=== PATIENT | male | born 1980 | race Caucasian/White ===

== ENCOUNTER 2024-11-28 18:38 | Emergency (ER) | payer MEDICAID, SELFPAY ==
--- NOTE | ~2024-11-28 | CT_ITS ---
CLINICAL HISTORY: jonsa CT head without contrast Comparison: None provided Findings: No intra-axial mass, midline shift, hydrocephalus, or acute hemorrhage. No significant atrophy-like change or white matter disease. There is no sinus or mastoid fluid. The orbits are unremarkable. There is no acute fracture. IMPRESSION: 1. No acute intracranial findings. This document has been electronically signed by: Mehul Hobbs MD on 11/28/2024 21:40:40
[2024-11-28 18:45] VITALS: BP 117/80; PULSE 59; RESP 16; TEMP 36.4; O2SAT 99; BMI 22.2
--- NOTE | 2024-11-28 18:47 | ED_ITS ---
HPI - Headache General Chief Complaint: Headache Stated Complaint: headache would like BP and Sugar checked Time Seen by Provider: 11/28/24 19:20 Related Data Allergies Allergy/AdvReac Type Severity Reaction Status Date / Time No Known Allergies Allergy Verified 11/28/24 18:49 [facility] Social History Social History Advance Directives: No Advance Directives Information Provided: Yes Do you have a plan to hurt others: No Plan Physical Exam 2 Vital Signs: Vital Signs: Last Vital Signs Temp 97.7 F 11/28/24 22:34 Pulse 63 11/28/24 22:34 Resp 16 11/28/24 22:34 BP 115/67 11/28/24 22:34 Pulse Ox 99 11/28/24 22:34 O2 Del Method Room Air 11/28/24 22:34 BMI result Body Mass Index 22.2 Course Course Course Narrative: This is an RME: Additional HPI, ROS, PE not included below will be deferred to primary provider. RME assessment and note performed by: Anna Pena PA-C This is a [id number]-male, with a hx of anxiety, depression, who presents to the ER with a complaint of headache, nausea, diarrhea, hot and cold sweats since yesterday. Neuros intact Plan: Labs, viral swabs, further ER eval needed Reevaluation(s) Reevaluation #1: >>duplicate note. See note by primary provider, Dr. Vaca Medications Administered Discontinued Medications Generic Name Dose Route Start Last Admin Trade Name Freq PRN Reason Stop Dose Admin Diphenhydramine HCl 25 mg 11/28/24 19:43 11/28/24 20:04 Diphenhydramine Hcl 50 Mg/Ml Vial IVPUSH 11/28/24 19:44 25 mg ONCE ONE Administration Sodium Chloride 1,000 mls @ 999 mls/hr 11/28/24 19:45 11/28/24 21:05 Ns IV 11/28/24 20:45 Infused .Q1H1M ANGELA Infusion Ketorolac Tromethamine 15 mg 11/28/24 19:43 11/28/24 20:04 Ketorolac Tromethamine 15 Mg/Ml Vial IVPUSH 11/28/24 19:44 15 mg ONCE ONE Administration Metoclopramide HCl 10 mg 11/28/24 19:43 11/28/24 20:04 Metoclopramide Hcl 10 Mg/2 Ml Vial IVPUSH 11/28/24 19:44 10 mg ONCE ONE Administration Medical Decision Making Lab Data 11/28/24 18:59 11/28/24 18:59 Labs: Lab Results 11/28/24 Range/Units 18:59 WBC 4.7 L (4.8-10.8) X10*3/uL RBC 5.07 (4.60-5.80) X10*6/uL Hgb 14.4 (14.0-18.0) g/dl Hct 42.9 (42.0-52.0) % MCV 84.6 (80.0-98.0) fL MCH 28.4 (27.0-33.0) pg MCHC 33.6 (31.0-36.0) g/dl RDW 13.6 (11.0-16.0) % Plt Count 202 (160-400) X10*3/uL MPV 9.0 L (9.4-12.4) fL Immature Gran % (Auto) 0.2 (0.0-0.4) % Neut % (Auto) 41.8 L (45-73) % Lymph % (Auto) 46.8 H (20-40) % [place] % (Auto) 7.1 (2-11) % Eos % (Auto) 3.0 (0-4) % Baso % (Auto) 1.1 (0-2) % Lymph # (Auto) 2.2 (1.2-4.9) X10*3/uL [place] # (Auto) 0.3 (0.1-1.2) X10*3/uL Eos # (Auto) 0.1 (0.0-0.4) X10*3/uL Baso # (Auto) 0.1 (0.0-0.2) X10*3/uL Abs Immat Gran (auto) 0.01 (0.00-0.03) X10*3/uL Absolute Neuts (auto) 2.0 (2.0-8.3) x10*3/uL Absolute Nucleated RBC 0.000 (0.0-0.012) X10*3/uL Nucleated RBC % (auto) 0.0 (0.0-0.2) /100WBC Sodium 142 (135-145) mmol/L Potassium 3.7 (3.3-5.1) mmol/L Chloride 111 H (96-108) mmol/L Carbon Dioxide 23 (22-29) mmol/L Anion Gap 12 (12-20) BUN 17 H (9-16) mg/dL Creatinine 0.99 (0.5-1.4) mg/dL Estim Creat Clear Calc 94.6 Estimated GFR > 60 Random Glucose 100 (60-115) mg/dL Calcium 8.9 (8.4-10.2) mg/dL Total Bilirubin 0.8 (0.0-1.0) mg/dL Direct Bilirubin 0.2 (0.0-0.5) mg/dL AST 30 (5-37) U/L ALT 34 (0-40) U/L Alkaline Phosphatase 86 (39-117) U/L Total Protein 7.5 (6.5-8.0) g/dL Albumin 4.4 (3.5-5.0) g/dL Influenza Type A (PCR) NEGATIVE (Negative) Influenza Type B (PCR) NEGATIVE (Negative) RSV RNA Qual (PCR) NEGATIVE (Negative) SARS-CoV-2 RNA (RT-PCR) NEGATIVE (Negative) Discharge Plan Discharge Clinical Impression: Headache Patient Disposition: Home, Self-Care Instructions: Acute Headache (DC) Referrals: Physician,Unknown J [Primary Care Provider, Medical] - 3 days Interventions: ED Discharge Assessment Last Done: 11/28/24 22:34 Discharge Date/Time: 11/28/24 22:34 Print Language: Panamanian
[2024-11-28 19:03] LABS: MANUAL DIFF FLAG NO
[2024-11-28 19:04] LABS: Basophils Absolute Auto 0.1 X10*3/uL (0.0-0.2); Basophils Percent Auto 1.1 % (0-2); Eosinophils Absolute Auto 0.1 X10*3/uL (0.0-0.4); Hematocrit 42.9 % (42.0-52.0); Hemoglobin 14.4 g/dl (14.0-18.0); Imm Gran Abs Auto 0.01 X10*3/uL (0.00-0.03); Imm Gran Pct Auto 0.2 % (0.0-0.4); Lymphocytes Absolute Auto 2.2 X10*3/uL (1.2-4.9); Lymphocytes Percent Auto 46.8 % (20-40); Mean Corpuscular HGB Conc 33.6 g/dl (31.0-36.0); Mean Corpuscular Hemoglobin 28.4 pg (27.0-33.0); Mean Corpuscular Volume 84.6 fL (80.0-98.0); Monocytes Absolute Auto 0.3 X10*3/uL (0.1-1.2); Monocytes Percent Auto 7.1 % (2-11); Neutrophils Percent Auto 41.8 % (45-73); Platelet Count 202 X10*3/uL (160-400); Red Blood Count 5.07 X10*6/uL (4.60-5.80); Red Cell Distribution Width 13.6 % (11.0-16.0); White Blood Count 4.7 X10*3/uL (4.8-10.8)
[2024-11-28 19:18] LABS: Alanine Aminotransferase 34 U/L (0-40); Albumin Level 4.4 g/dL (3.5-5.0); Alkaline Phosphatase 86 U/L (39-117); Anion Gap 12 (12-20); Aspartate Amino Transferase 30 U/L (5-37); Bilirubin Direct 0.2 mg/dL (0.0-0.5); Bilirubin Total 0.8 mg/dL (0.0-1.0); Blood Urea Nitrogen 17 mg/dL (9-16); Calcium 8.9 mg/dL (8.4-10.2); Carbon Dioxide 23 mmol/L (22-29); Chloride 111 mmol/L (96-108); Creatinine Clr Calc Pharmacy 94.6; Estimated Glomerular Filt Rate > 60; Glucose Random 100 mg/dL (60-115); Potassium 3.7 mmol/L (3.3-5.1); Sodium 142 mmol/L (135-145); Total Protein 7.5 g/dL (6.5-8.0)
[2024-11-28 19:41] LABS: Influenza A PCR NEGATIVE (Negative); Influenza B PCR NEGATIVE (Negative); Resp Syncy Virus RNA Qual PCR NEGATIVE (Negative); SARS COV2 PCR INHOUSE NEGATIVE (Negative)
--- NOTE | 2024-11-28 19:49 | ED.HA ---
HPI - Headache General Chief Complaint: Headache Stated Complaint: headache would like BP and Sugar checked Time Seen by Provider: 11/28/24 19:20 History of Present Illness HPI Narrative: Patient is a 44-year-old male presents today with having headache nausea from home. No fever no chills. No diaphoresis. No chest pain no coughing no upper respiratory symptoms. No neck pain no fever. The pain has been ongoing for about a week. Has a history of similar headaches in the past. No focal weakness. Not on blood thinners. History of anxiety. Related Data Allergies Allergy/AdvReac Type Severity Reaction Status Date / Time No Known Allergies Allergy Verified 11/28/24 18:49 Review of Systems Review of Systems: Positive headache Yes all other systems are reviewed and are negative PMFSH Past Medical History Attestation statement: The following information was validated with the patient. Social History Social History Advance Directives: No Advance Directives Information Provided: Yes Do you have a plan to hurt others: No Plan Physical Exam Vital Signs: Vital Signs: Last Vital Signs Temp 97.6 F 11/28/24 18:45 Pulse 59 11/28/24 18:45 Resp 16 11/28/24 18:45 BP 117/80 11/28/24 18:45 Pulse Ox 99 11/28/24 18:45 O2 Del Method Room Air 11/28/24 18:45 BMI result Body Mass Index 22.2 Appearance: Alert. Oriented X3. No acute distress. Eyes: Pupils equal, round and reactive to light. ENT: Pharynx normal. Neck: Normal inspection. Neck supple. No lymph nodes noted. No crepitus CVS: Normal heart rate and rhythm. Pulses normal. Normal S1 and S2 Respiratory: No respiratory distress. Breath sounds normal. No Wheezing. No rales Abdomen: Soft and nontender. No rigidity. No distention. good BS x4 Skin: Skin warm and dry. Normal skin color. Normal skin turgor. Extremities: No lower extremity edema. Neurovascular intact to all extremities. No Lacerations. No Rash Neuro: Oriented X 3. No motor deficit. No sensory deficit. Moving all extermities. No slurred speech Medications Administered Discontinued Medications Generic Name Dose Route Start Last Admin Trade Name Freq PRN Reason Stop Dose Admin Diphenhydramine HCl 25 mg 11/28/24 19:43 11/28/24 20:04 Diphenhydramine Hcl 50 Mg/Ml Vial IVPUSH 11/28/24 19:44 25 mg ONCE ONE Administration Sodium Chloride 1,000 mls @ 999 mls/hr 11/28/24 19:45 11/28/24 20:04 Ns IV 11/28/24 20:45 999 mls/hr .Q1H1M ANGELA Administration Ketorolac Tromethamine 15 mg 11/28/24 19:43 11/28/24 20:04 Ketorolac Tromethamine 15 Mg/Ml Vial IVPUSH 11/28/24 19:44 15 mg ONCE ONE Administration Metoclopramide HCl 10 mg 11/28/24 19:43 11/28/24 20:04 Metoclopramide Hcl 10 Mg/2 Ml Vial IVPUSH 11/28/24 19:44 10 mg ONCE ONE Administration Medical Decision Making Medical Decision Making [facility] Narrative: CT scan of the head was grossly negative for any acute evidence of bleeding by my interpretation. Final CT still pending. Patient's electrolytes unremarkable. Given migraine cocktail with good relief of symptoms. Will discharge patient home on CT returned history not consistent with meningitis Differential Diagnosis Differential Diagnoses: The differential diagnosis associated with the presentation includes Meningitis, tension headache, migraine Admission/Observation Consideration of admission/observation: Escalation of care including admission/observation considered Lab Data [facility] Lab Attestation statement: I reviewed the patient's lab results. 11/28/24 18:59 11/28/24 18:59 Labs: Lab Results 11/28/24 Range/Units 18:59 WBC 4.7 L (4.8-10.8) X10*3/uL RBC 5.07 (4.60-5.80) X10*6/uL Hgb 14.4 (14.0-18.0) g/dl Hct 42.9 (42.0-52.0) % MCV 84.6 (80.0-98.0) fL MCH 28.4 (27.0-33.0) pg MCHC 33.6 (31.0-36.0) g/dl RDW 13.6 (11.0-16.0) % Plt Count 202 (160-400) X10*3/uL MPV 9.0 L (9.4-12.4) fL Immature Gran % (Auto) 0.2 (0.0-0.4) % Neut % (Auto) 41.8 L (45-73) % Lymph % (Auto) 46.8 H (20-40) % [place] % (Auto) 7.1 (2-11) % Eos % (Auto) 3.0 (0-4) % Baso % (Auto) 1.1 (0-2) % Lymph # (Auto) 2.2 (1.2-4.9) X10*3/uL [place] # (Auto) 0.3 (0.1-1.2) X10*3/uL Eos # (Auto) 0.1 (0.0-0.4) X10*3/uL Baso # (Auto) 0.1 (0.0-0.2) X10*3/uL Abs Immat Gran (auto) 0.01 (0.00-0.03) X10*3/uL Absolute Neuts (auto) 2.0 (2.0-8.3) x10*3/uL Absolute Nucleated RBC 0.000 (0.0-0.012) X10*3/uL Nucleated RBC % (auto) 0.0 (0.0-0.2) /100WBC Sodium 142 (135-145) mmol/L Potassium 3.7 (3.3-5.1) mmol/L Chloride 111 H (96-108) mmol/L Carbon Dioxide 23 (22-29) mmol/L Anion Gap 12 (12-20) BUN 17 H (9-16) mg/dL Creatinine 0.99 (0.5-1.4) mg/dL Estim Creat Clear Calc 94.6 Estimated GFR > 60 Random Glucose 100 (60-115) mg/dL Calcium 8.9 (8.4-10.2) mg/dL Total Bilirubin 0.8 (0.0-1.0) mg/dL Direct Bilirubin 0.2 (0.0-0.5) mg/dL AST 30 (5-37) U/L ALT 34 (0-40) U/L Alkaline Phosphatase 86 (39-117) U/L Total Protein 7.5 (6.5-8.0) g/dL Albumin 4.4 (3.5-5.0) g/dL Influenza Type A (PCR) NEGATIVE (Negative) Influenza Type B (PCR) NEGATIVE (Negative) RSV RNA Qual (PCR) NEGATIVE (Negative) SARS-CoV-2 RNA (RT-PCR) NEGATIVE (Negative) Independent Interpretation I performed an independent interpretation of an: CT Scan (CT head negative) Discharge Plan Discharge Clinical Impression: Headache Patient Disposition: Home, Self-Care Instructions: Acute Headache (DC) Referrals: Physician,Unknown J [Primary Care Provider, Medical] - 3 days Print Language: Telugu
[2024-11-28] MEDS: diphenhydrAMINE HCL 50 MG/ML VIAL 25 MG IVPUSH (20:04)
[2024-11-28] MEDS: Metoclopramide HCl 10 MG/2 ML VIAL IVPUSH (20:04)
[2024-11-28] MEDS: Ketorolac Tromethamine 15 MG/ML VIAL IVPUSH (20:04)
[2024-11-28] MEDS: 0.9 % Sodium Chloride 1,000 ML 999 ML IV (20:04)
[2024-11-28 22:16] VITALS: BP 115/67; PULSE 63; RESP 16; TEMP 36.5; O2SAT 99
[2024-11-28 22:34] VITALS: BP 115/67; PULSE 63; RESP 16; TEMP 36.5; O2SAT 99
== END 2024-11-28 22:34 | disposition home or self-care (01) ==
PROVIDERS: Physician Assistant Medical; Emergency Provider Emergency Medicine Emergency Medical Services
DX: R51.9 Headache, unspecified (principal); Z03.818 Encounter for observation for suspected exposure to other biological agents ruled out
CPT/HCPCS: 0241U; 70450; 80048; 80076; 85025; 96361; 96374; 96375; 99284; J1200; J1885; J2765

== ENCOUNTER → 2024-11-28 19:43 | Outpatient (BNV) | payer MEDICAID, SELFPAY | PROVIDERS: Emergency Provider Emergency Medicine Emergency Medical Services; Visit Provider Radiology Diagnostic Radiology | DX: R51.9 Headache, unspecified (principal) | CPT/HCPCS: 70450 ==

== ENCOUNTER 2025-04-25 21:54 | Emergency (ER) | payer OTHER, SELFPAY ==
--- NOTE | ~2025-04-25 | XR_ITS ---
CLINICAL HISTORY: cough fever 2 view chest x-ray Comparison: None provided Findings: The lungs are clear. Normal size heart. No acute fracture. IMPRESSION: 1. No acute findings. This document has been electronically signed by: Curly Carrasquillo MD on 04/26/2025 00:47:38
--- NOTE | ~2025-04-25 | XR_ITS ---
CLINICAL HISTORY: R leg cellulitis, distal medial 2 view right tibia-fibula Comparison: None provided Findings No fractures or dislocations. No joint effusion. No significant arthritic change. No radiopaque foreign body. No soft tissue gas. IMPRESSION: 1. Normal right tibia-fibula This document has been electronically signed by: Curly Carrasquillo MD on 04/26/2025 00:48:46
[2025-04-25 22:02] VITALS: BP 125/58; PULSE 122; RESP 20; TEMP 37.4; O2SAT 96; BMI 24.3
[2025-04-25 22:31] LABS: MANUAL DIFF FLAG NO
[2025-04-25 22:33] LABS: Hematocrit 39.7 % (42.0-52.0); Hemoglobin 12.6 g/dl (14.0-18.0); Imm Gran Abs Auto 0.01 X10*3/uL (0.00-0.03); Imm Gran Pct Auto 0.2 % (0.0-0.4); Lymphocytes Absolute Auto 1.1 X10*3/uL (1.2-4.9); Mean Corpuscular HGB Conc 31.7 g/dl (31.0-36.0); Mean Corpuscular Hemoglobin 28.3 pg (27.0-33.0); Mean Corpuscular Volume 89.0 fL (80.0-98.0); NRBC Abs Auto 0.000 X10*3/uL (0.0-0.012); NRBC Pct Auto 0.0 /100WBC (0.0-0.2); Platelet Count 268 X10*3/uL (160-400); Red Blood Count 4.46 X10*6/uL (4.60-5.80); White Blood Count 4.8 X10*3/uL (4.8-10.8)
[2025-04-25 22:48] VITALS: BP 119/67; PULSE 112; RESP 17; TEMP 37.1; O2SAT 95
[2025-04-25 22:48] LABS: Alanine Aminotransferase 27 U/L (0-40); Albumin Level 3.7 g/dL (3.5-5.0); Alkaline Phosphatase 89 U/L (39-117); Anion Gap 13 (12-20); Aspartate Amino Transferase 36 U/L (5-37); Blood Urea Nitrogen 13 mg/dL (9-16); Calcium 8.6 mg/dL (8.4-10.2); Carbon Dioxide 24 mmol/L (22-29); Chloride 108 mmol/L (96-108); Creatinine Clr Calc Pharmacy 93.7; Estimated Glomerular Filt Rate > 60; Potassium 3.7 mmol/L (3.3-5.1); Sodium 141 mmol/L (135-145); Total Protein 7.4 g/dL (6.5-8.0)
[2025-04-25 22:59] LABS: Appearance Urine Clear; Glucose Urine UA Negative (Negative); PH 8.5 (5.0-9.0); Specific Gravity - Urine >= 1.030 (1.005-1.025); UMIC TRIGGER UACC YES
[2025-04-25 23:09] LABS: Cannabinoid Screen Urine POSITIVE (Not Detect)
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
[2025-04-26] VITALS (10 sets, daily range): BP systolic 00–148; BP diastolic 00–88; PULSE 75–112; RESP 16–20; TEMP -17.7–36.7; O2SAT 95–98
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
[2025-04-26] MEDS: Sulfamethox/Trimeth 800/160 TABLET 1 TAB PO ×2 (00:38→17:13)
--- NOTE | 2025-04-26 12:00 | PC.NURSE ---
Pt HR noted to be 100s-110s, sinus tach on coffee blender- asymptomatic. Denies CP/SOB/Dizziness/lightheadedness. MD Patrick made aware- no new orders at this time.
--- NOTE | 2025-04-26 15:13 | PC.NURSE ---
med rec completed, plan to continue home meds and PO abx, pt pending CARE/recovery eval.
--- NOTE | 2025-04-26 15:34 | PHA.MEDREC ---
Pharmacy Consult ? Medication Reconciliation Nursing has completed the medication reconciliation. Reviewed by pharmacy, matches claim history
== END 2025-04-26 17:27 | disposition home or self-care (01) ==
PROVIDERS: Emergency Provider Emergency Medicine
DX: L97.819 Non-pressure chronic ulcer of other part of right lower leg with unspecified severity (principal); L03.115 Cellulitis of right lower limb; F14.10 Cocaine abuse, uncomplicated; Z59.00 Homelessness unspecified; Z87.828 Personal history of other (healed) physical injury and trauma
CPT/HCPCS: 36415; 71046; 73590; 80053; 80307; 81001; 83605; 85025; 87040; 96361; 96374; 99285; J0690; S9485

== ENCOUNTER → 2025-04-25 23:40 | Outpatient (BNV) | payer OTHER, SELFPAY | PROVIDERS: Emergency Provider Emergency Medicine; Visit Provider Radiology Diagnostic Radiology | DX: R05.9 Cough, unspecified (principal); R50.9 Fever, unspecified; L03.115 Cellulitis of right lower limb | CPT/HCPCS: 71046; 73590 ==